=== PATIENT | female | born 1950 | race Caucasian/White ===

== ENCOUNTER 2017-08-11 11:31 | Emergency (ER) | payer OTHER ==
[~2017-08-11] VITALS: Ht 152.4 cm; Wt 72.3 kg
[~2017-08-11 11:31] MED LIST: ASPIRIN E.C.81 M1 PO; BLOOD PRESSURE MEDS; CIPRO500 MG PO; COLACE100 MG PO; Cipro PO; DIOVAN40 MG PO; Ecotrin PO; FEOSOL325 MG PO; FLAGYL500 MG PO; FLEXERIL10 MG PO; Folvite PO; HUMALOG100 UNIT/1 SQ; LANTUS100 UNIT/1 SQ; MILK OF MAGN PO; MOTRIN600 MG PO; NORCO 5/3251 TABLET PO; PERCOCET 10/1 TABLE1 PO; PERCOCET 10/1 TABLET PO; PERCOCET PO; PYRIDIUM200 MG PO; Vitamin B-12 PO; Xanax PO; ZESTRIL,PRINIVI10 M1 PO; Zestril,Prinivil PO; [UNRECOGNIZED DRUG - OTHER] PO
[2017-08-11 12:47] LABS: HEMOGLOBIN 14.6 G/DL (11.9-15.5); MCH 30.2 PG (29.0-34.0); MCV 88.8 FL (83-99); PLATELET COUNT 187 K/uL (156-360); RBC DIS.WIDTH-CV 12.9 % (11.8-14.6); RED BLOOD COUNT 4.84 M/uL (3.80-5.20); WHITE BLOOD COUNT 7.2 K/uL (4.1-10.2)
[2017-08-11 13:10] LABS: CHLORIDE 104 mEq/L (99-109); POTASSIUM 4.3 mEq/L (3.7-5.4); SODIUM 137 mEq/L (136-147)
[2017-08-11 13:11] LABS: GLUCOSE 113 mg/dL (70-99)
[2017-08-11 13:14] LABS: TROP-I INTERPRETATION NEGATIVE; TROPONIN-I 0.02 ng/mL (0.0-0.30)
[2017-08-11 13:15] LABS: CREATININE 0.9 mg/dL (0.6-1.3); GFR ESTIMATE (CALCULATED) > 59 mL/min/
[2017-08-11 13:16] LABS: UREA NITROGEN (BUN) 17 mg/dL (9-23)
[2017-08-11 13:32] LABS: D-DIMER ELISA < 150.00 ng/mLDDU (<230)
[2017-08-11] MEDS ORDERED: OMEPRAZOLE40 M1 PO (13:53)
[2017-08-11 15:45] LABS: TROP-I INTERPRETATION NEGATIVE; TROPONIN-I 0.03 ng/mL (0.0-0.30)
[2017-08-11] MEDS ORDERED: XANAX0.5 MG PO (16:41)
[2017-08-11 17:04] VITALS: BP 140/72
== END 2017-08-11 17:05 | disposition home or self-care (01) ==
LOC: EME 11:31
PROVIDERS: Emergency Medicine
DX: R07.89 Other chest pain (principal); I10 Essential (primary) hypertension; K21.9 Gastro-esophageal reflux disease without esophagitis; F41.9 Anxiety disorder, unspecified; F32.9 Major depressive disorder, single episode, unspecified
CPT/HCPCS: 71046; 80048; 84484; 85027; 85379; 93005; 99281; 99285

== ENCOUNTER 2017-08-26 08:53 | Emergency (ER) | payer OTHER ==
[~2017-08-26] VITALS: Ht 165.1 cm; Wt 70.7 kg
[~2017-08-26 08:53] MED LIST changes: +OMEPRAZOLE40 M1 PO; +XANAX0.5 MG PO
[2017-08-26 09:38] LABS: HEMATOCRIT 44.2 % (36.0-46.0); MCH 29.8 PG (29.0-34.0); MCHC 33.9 G/DL (30.0-36.0); MCV 87.7 FL (83-99); PLATELET COUNT 204 K/uL (156-360); RBC DIS.WIDTH-CV 12.7 % (11.8-14.6); RBC DIS.WIDTH-SD 40.8 % (39-53); RED BLOOD COUNT 5.04 M/uL (3.80-5.20); WHITE BLOOD COUNT 10.8 K/uL (4.1-10.2)
[2017-08-26 09:48] LABS: CHLORIDE 104 mEq/L (99-109); POTASSIUM 4.2 mEq/L (3.7-5.4); SODIUM 137 mEq/L (136-147)
[2017-08-26 09:49] LABS: GLUCOSE 115 mg/dL (70-99)
[2017-08-26 09:53] LABS: CREATININE 0.8 mg/dL (0.6-1.3); GFR ESTIMATE (CALCULATED) > 59 mL/min/
[2017-08-26 09:54] LABS: UREA NITROGEN (BUN) 14 mg/dL (9-23)
[2017-08-26] MEDS ORDERED: XANAX0.5 MG PO (12:36)
[2017-08-26 12:48] VITALS: BP 146/63
== END 2017-08-26 12:49 | disposition home or self-care (01) ==
LOC: EME 08:53
DX: R51 Headache (principal); F41.9 Anxiety disorder, unspecified; I10 Essential (primary) hypertension; K21.9 Gastro-esophageal reflux disease without esophagitis; F32.9 Major depressive disorder, single episode, unspecified; Z88.8 Allergy status to other drugs, medicaments and biological substances
CPT/HCPCS: 70450; 71046; 80048; 85027; 93005; 99281; 99284